=== PATIENT | female | born 2000 | race African-American/Black ===

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

== ENCOUNTER 2019-02-21 01:54 | Emergency (ER) | payer MEDICAID ==
[~2019-02-21] VITALS: Ht 167.6 cm; Wt 52.0 kg
[2019-02-21] MEDS ORDERED: IBUPROFEN 600MG TABLET PO ONE (04:15)
[2019-02-21 04:31] VITALS: BP 104/62
== END 2019-02-21 04:37 | disposition home or self-care (01) ==
LOC: ER 01:54
DX: M25.561 Pain in right knee (principal)
CPT/HCPCS: 81025; 99282

== ENCOUNTER 2024-09-30 12:19 | Emergency (ER) | payer MEDICAID ==
[~2024-09-30] VITALS: Ht 167.6 cm; Wt 66.0 kg
[2024-09-30 12:24] VITALS: BP 105/68; TEMP 36.7; O2SAT 99
[2024-09-30 12:29] VITALS: PULSE 100; RESP 18; O2SAT 100
[2024-09-30 13:07] LABS: BASOPHILS % 0.7 % (0.0-2.0); EOSINOPHILS % 0.9 % (0.0-5.0); HEMATOCRIT. 37.0 % (36.0-48.0); HEMOGLOBIN. 12.7 g/dL (12.0-16.0); LYMPHOCYTES % 26.1 % (20.0-50.0); MEAN PLATELET VOLUME 10.2 fl (7.4-10.4); MONOCYTES % 4.7 % (2.0-8.0); NEUTROPHILS % 67.6 % (40.0-76.0); PLATELET 208 x1000/uL (130-400); RED BLOOD CELL COUNT 4.18 mill/uL (4.2-5.4); RED CELL DISTRIBUTION WIDTH 12.9 % (11.6-14.6)
[2024-09-30 13:17] LABS: HCG SCREEN NEGATIVE
[2024-09-30 13:20] LABS: CREATININE 0.9 mg/dL (0.6-1.0); TROPONIN I HIGH SENSITIVITY < 4 ng/L (3.0-34); UREA NITROGEN BLOOD 8 mg/dL (9-23)
[2024-09-30] MEDS: IBUPROFEN 600MG TABLET PO ONE (13:20)
[2024-09-30] MEDS ORDERED: IBUP-2028 MT (13:38)
== END 2024-09-30 14:00 | disposition home or self-care (01) ==
LOC: ER 12:19
DX: R07.89 Other chest pain (principal); Z79.899 Other long term (current) drug therapy
CPT/HCPCS: 36415; 71045; 80048; 81025; 84484; 84703; 85025; 93005; 99285